=== PATIENT | female | born 1980 | race Caucasian/White ===

== ENCOUNTER → 2021-02-22 | Outpatient (CLI) | payer OTHER ==
--- NOTE | 2021-02-25 10:07 | KCIC ---
Exam Date: 02/22/2021 11:00 AM MRI LEFT LOWER EXTREMITY JOINT WITHOUT Indication: Reason: PAIN/SWELLING X 3 WEEKS AFTER INJURY / Spl. Instructions: / History: Pt rolled l t ankle about one mth ago. Anterior jointline pain. Med/lat pain. TECHNIQUE: Multiplanar MR images of the ankle without intravenous contrast. FINDINGS: Anterior talofibular ligament is not well-visualized consistent with a tear, possibly subacute or chr onic. The posterior talofibular ligament is intact. The anterior and posterior tibiofibular ligaments are intact. The calcaneofibular ligament is intact . There is increased signal involving the deep fibers of the deltoid ligament consistent with a mild sprain. The superficial fibers of the ligament are intact and within normal limits. The spring lig ament is intact. Lisfranc ligament is intact. The posterior tibial tendon, flexor digitorum longus tendon, and flexor hallucis longus tendon are in tact and within normal limits. The peroneal tendons are intact. Visualized extensor tendons are int act. Achilles tendon is intact and within normal limits. There is focal marrow edema involving the medial talus which is nonspecific but may represent a bone contusion or degenerative change. No fracture line identified. Mild scattered degenerative marrow s ignal is seen. No acute fracture is seen. Bone marrow otherwise demonstrates normal signal on all sequences. The tarsal tunnel, sinus tarsi and plantar fascia are within normal limits. IMPRESSION: The anterior talofibular ligament is torn, possibly subacute or chronic. There is a mild sprain involving the deep fibers of the deltoid ligament. Focal marrow edema involving the medial talus is nonspecific and may represent bone contusion versus degenerative change. No fracture line is identified. Electronically signed by: Kenn Marino MD (02/25/2021 10:04 AM) [id number]
== END ==
LOC: KCIC MRI 10:41
PROVIDERS: ATTEND Nurse Practitioner Family
DX: S93.492A Sprain of other ligament of left ankle, initial encounter (principal); S93.422A Sprain of deltoid ligament of left ankle, initial encounter; R60.0 Localized edema; X58.XXXA Exposure to other specified factors, initial encounter; Y93.89 Activity, other specified; Y92.89 Other specified places as the place of occurrence of the external cause; Y99.8 Other external cause status
CPT/HCPCS: 73721